=== PATIENT | female | born 1940 | race Caucasian/White ===

== ENCOUNTER → 2017-04-26 14:07 | Outpatient (CLI) | payer MEDICARE, MEDICAID, SELFPAY ==
--- NOTE | 2017-04-26 14:13 | RAD_ITS ---
STUDY: X-RAY - PELVIS AND RIGHT HIP REASON FOR EXAM: Female, 76 years old. Chronic pain TECHNIQUE: Three views of the pelvis and hip were obtained. COMPARISON: None. FINDINGS: The bowel gas pattern is unremarkable. There are numerous phleboliths in the pelvis. There are mild degenerative changes in the lower lumbar spine. There are degenerative changes in both sacroiliac joints. No abnormalities are seen in the visualized superior and inferior pubic rami. Normal appearing pubic symphysis. The visualized ischial tuberosities are unremarkable. The proximal femur shows no significant abnormalities. There is minimal sclerosis in the right acetabulum. There is mild articular joint space narrowing of the hip. 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 Electronically Signed: Patricia Handley MD at 1:59 EST Tel Direct: [phone], Service support ,
== END ==
PROVIDERS: Visit Provider Orthopaedic Surgery
DX: M16.11 Unilateral primary osteoarthritis, right hip (principal)
CPT/HCPCS: 73502